=== PATIENT | male | born 1995 | race Two or more races ===

== ENCOUNTER 2018-10-18 14:49 | Emergency (ER) | payer MEDICAID ==
[2018-10-18 16:23] LABS: URINE SOURCE CLEAN C
[2018-10-18 16:24] LABS: URINE BILIRUBIN NEGATIVE (NEGATIVE); URINE BLOOD NEGATIVE (NEGATIVE); URINE GLUCOSE (UA) NEGATIVE (NEGATIVE); URINE KETONE NEGATIVE (NEGATIVE); URINE LEUKOCYTE ESTERASE NEGATIVE (NEGATIVE); URINE NITRATE NEGATIVE (NEGATIVE); URINE PH 5.5 (4.6 - 8.0); URINE PROTEIN NEGATIVE (NEGATIVE); URINE UROBILINOGEN 0.2 E.U./dL (0.2 - 1.0)
[2018-10-18 16:28] LABS: URINE CLARITY CLEAR (CLEAR); URINE COLOR YELLOW; URINE MICROSCOPIC INDICATED? YES; URINE RBC NONE SEEN /hpf (0-5)
[2018-10-18 16:29] LABS: URINE BACTERIA OCCASIONAL /hpf (NONE SEEN); URINE EPITHELIAL CELLS NONE SEEN /lpf (FEW)
--- NOTE | 2018-10-19 10:08 | Diagnostic Imaging Report ---
Testicular/scrotal ultrasound HISTORY: Pain The right testis measures 3.5 x 2.2 x 2.8 cm. No focal parenchymal lesions. Normal testicular vascular flow. The right epididymis appears normal. Evidence of a small hydrocele on the right side. The left testis measures 4.2 x 2.5 x 2.6 cm. No focal intratesticular lesions. Normal testicular vascular flow. The left epididymis appears normal. No hydrocele or varicocele on the left. IMPRESSION: 1. No focal intratesticular abnormalities 2. Small right hydrocele
--- NOTE | 2018-10-31 11:16 | ER Physician Documentation ---
DATE OF SERVICE: 10/18/2018 CHIEF COMPLAINT: Testicle pain. HISTORY OF PRESENT ILLNESS: Concern of a mass or hernia to the scrotum. He has had discomfort to scrotum for one-half weeks and is seeking medical care for the first time today. The patient denies any history of concerns of STD. Denies any dysuria. No penile discharge. PAST MEDICAL HISTORY: Unremarkable. PAST SURGICAL HISTORY: Unremarkable. REVIEW OF SYSTEMS: Positive for scrotal pain. The patient denies any history of penile discharge, dysuria, nausea, vomiting, diarrhea or constipation. PHYSICAL EXAMINATION: The patient is a well-developed and well-nourished male, who is sexually active, who complains of testicle pain. The testicle reveals a slight fullness on the right hand side. There is phimosis present. The patient said that he has had this phimosis since he was a teenager. No inguinal lymphadenopathy present. No other masses palpated. No CVA tenderness. No abdominal pain. The testicle ultrasound revealed no focal intratesticular abnormalities, but a small right hydrocele present. The patient was given referral to Dr. Townsend, our urologist on staff for possible treatment of the phimosis which completely covered his penis and one is not even able to see his urethra because of this and also for dressing a small right hydrocele. The patient also had a urinalysis sent, which was completely negative for any urinary tract infection. ASSESSMENT: Right hydrocele with phimosis; follow up with Dr. Townsend, the urologist on staff. No need for antibiotics or pain pills. JOB# [id number]
== END 2018-10-18 17:40 | disposition home or self-care (01) ==
LOC: ER 14:49
DX: N43.2 Other hydrocele (principal)
CPT/HCPCS: 76870-TC; 81001-TC